=== PATIENT | female | born 1975 | race Caucasian/White ===

== ENCOUNTER → 2016-06-25 | Outpatient (CLI) | payer MEDICAID ==
[~2016-06-25] MED LIST: IMITREX50 MG PO; NORCO 325 MG-7.1 TAB PO; PRENATAL VITAMI1 TA5 PO; PROMETRIUM100 MG/CAP
== END ==
LOC: COL.RAD 06-24 08:30
DX: R19.09 Other intra-abdominal and pelvic swelling, mass and lump (principal); R10.84 Generalized abdominal pain
CPT/HCPCS: Q9967

== ENCOUNTER → 2016-07-01 | Outpatient (CLI) | payer MEDICAID | LOC: COL.RAD 10:30 | DX: R10.11 Right upper quadrant pain (principal); R11.2 Nausea with vomiting, unspecified ==

== ENCOUNTER → 2016-07-08 | Outpatient (CLI) | payer MEDICAID | LOC: COL.RAD 06:05 | DX: R10.11 Right upper quadrant pain (principal); R11.2 Nausea with vomiting, unspecified | CPT/HCPCS: A9537; J2805 ==

== ENCOUNTER 2016-07-29 17:11 | Emergency (ER) | payer MEDICAID ==
[~2016-07-29] VITALS: Ht 165.1 cm; Wt 77.3 kg
[~2016-07-29 17:11] MED LIST changes: -IMITREX50 MG PO; -NORCO 325 MG-7.1 TAB PO
[2016-07-29 17:14] VITALS: TEMP 97.7
[2016-07-29] MEDS ORDERED: IMITREX50 MG PO (17:17)
[2016-07-29] MEDS ORDERED: NORCO 325 MG-7.1 TAB PO (17:18)
[2016-07-29 18:03] LABS: BASO # 0.1 (0.0-0.2); BASO % 0.8 % (0.0-2.0); EOS # 0.8 (0.0-0.7); EOS % 10.4 % (0-4.0); GRAN % 49.9 % (42.2-75.2); HEMATOCRIT 43.9 % (37.0-47.0); HEMOGLOBIN 14.8 g/dl (12.5-16.0); LYMPH # 2.3 (1.2-3.4); LYMPH % 28.5 % (20.0-51.0); MEAN CELL VOLUME 88 fl (80.0-100.0); MEAN CORPUSCULAR HEMOGLOBIN 30 pg (27.0-31.0); MEAN CORPUSCULAR HGB CONC 34 g/dl (33.0-37.0); MEAN PLATELET VOLUME 9.6 fl (7.4-10.4); MONO # 0.6 (0.1-0.6); MONO % 7.6 % (1.7-9.3); PLATELET COUNT 306 K/mm3 (130-400); RED BLOOD COUNT 4.97 M/mm3 (4.10-5.30); REDCELL DISTRIBUTION WIDTH-CV 13.1 % (11.5-14.5); WHITE BLOOD COUNT 7.9 K/mm3 (4.8-10.8)
[2016-07-29 18:08] LABS: ADJUSTED CALCIUM 9.2 mg/dL (8.4-10.2); ALBUMIN 4.4 gm/dL (3.5-5.0); BILIRUBIN,TOTAL 0.9 mg/dL (0.0-1.0); CALCIUM 9.5 mg/dL (8.4-10.2); CREATININE, serum 0.78 mg/dL (0.52-1.25); POTASSIUM 3.6 mmol/L (3.4-5.0); TOTAL PROTEIN 8.6 gm/dL (6.4-8.2)
[2016-07-29 18:17] LABS: PH 5 (5-8); URINE APPEARANCE Hazy; URINE BACTERIA Rare /hpf; URINE BILIRUBIN Negative (NEGATIVE); URINE BLOOD Negative (NEGATIVE); URINE COLOR Yellow; URINE GLUCOSE Negative (NEGATIVE); URINE KETONE Negative (NEGATIVE); URINE UROBILINOGEN Negative (NEGATIVE); URINE WBC 0-2 /hpf
[2016-07-29 18:53] VITALS: BP 136/84; PULSE 96
== END 2016-07-29 19:08 | disposition home or self-care (01) ==
LOC: COL.ER 17:11
PROVIDERS: Emergency Medicine
DX: G89.18 Other acute postprocedural pain (principal); R10.11 Right upper quadrant pain; Z90.49 Acquired absence of other specified parts of digestive tract
CPT/HCPCS: J2765; J3010; J7030; Q9967

== ENCOUNTER 2016-10-22 22:16 | Emergency (ER) | payer MEDICAID ==
[~2016-10-22] VITALS: Ht 162.6 cm; Wt 83.2 kg
[~2016-10-22 22:16] MED LIST changes: +IMITREX50 MG PO; +NORCO 325 MG-7.1 TAB PO
[2016-10-22 22:19] VITALS: BP 159/96; PULSE 88; TEMP 97.6
== END 2016-10-22 22:58 | disposition home or self-care (01) ==
LOC: COL.ER 22:16
DX: G43.909 Migraine, unspecified, not intractable, without status migrainosus (principal)
CPT/HCPCS: J1200; J1885; J2550

== ENCOUNTER 2016-10-23 10:17 | Emergency (ER) | payer MEDICAID ==
[~2016-10-23] VITALS: Ht 162.6 cm; Wt 83.2 kg
[2016-10-23 10:22] VITALS: BP 121/88; TEMP 97.8
[2016-10-23 11:59] VITALS: PULSE 73
== END 2016-10-23 12:01 | disposition home or self-care (01) ==
LOC: COL.ER 10:17
DX: G43.909 Migraine, unspecified, not intractable, without status migrainosus (principal)
CPT/HCPCS: J1885; J2765

== ENCOUNTER → 2017-03-04 | Outpatient (CLI) | payer MEDICAID | LOC: COL.RAD 07:09 | DX: R42 Dizziness and giddiness (principal); R51 Headache | CPT/HCPCS: A9585 ==

== ENCOUNTER → 2017-06-30 | Outpatient (CLI) | payer MEDICAID | LOC: MC.RAD 10:52 | DX: Z12.31 Encounter for screening mammogram for malignant neoplasm of breast (principal); Z98.82 Breast implant status ==

== ENCOUNTER → 2017-07-02 | Outpatient (CLI) | payer MEDICAID | LOC: MC.RAD 09:44 | DX: N60.01 Solitary cyst of right breast (principal) ==

== ENCOUNTER 2017-08-04 08:46 | Emergency (ER) | payer MEDICAID ==
[~2017-08-04] VITALS: Ht 177.8 cm; Wt 81.8 kg
[2017-08-04 08:52] VITALS: BP 138/88; TEMP 98
[2017-08-04] MEDS ORDERED: IMITREX ST6 MG/0.51 IM (08:56)
[2017-08-04] MEDS ORDERED: TOPAMAX 25MG25 M1 PO (08:56)
[2017-08-04] MEDS ORDERED: PRILOSEC 20MG20 MG PO (08:57)
[2017-08-04] MEDS ORDERED: VESICARE 5MG5 MG PO (08:59)
[2017-08-04] MEDS ORDERED: NATURAL MAGNES200 MG PO (08:59)
[2017-08-04] MEDS ORDERED: ESTRACE2 MG PO (09:00)
[2017-08-04] MEDS ORDERED: VITAMIN D31000 I1 PO (09:00)
[2017-08-04] MEDS ORDERED: VITAMIN B225 MG PO (09:01)
[2017-08-04] MEDS ORDERED: PREDNISONE20 MG PO (09:53)
[2017-08-04 10:10] VITALS: PULSE 89
== END 2017-08-04 10:11 | disposition home or self-care (01) ==
LOC: COL.ER 08:46
DX: J98.01 Acute bronchospasm (principal); K21.9 Gastro-esophageal reflux disease without esophagitis; Z90.710 Acquired absence of both cervix and uterus

== ENCOUNTER 2017-10-09 23:11 | Emergency (ER) | payer MEDICAID ==
[~2017-10-09] VITALS: Ht 172.7 cm; Wt 81.8 kg
[~2017-10-09 23:11] MED LIST changes: +ESTRACE2 MG PO; +IMITREX ST6 MG/0.51 IM; +NATURAL MAGNES200 MG PO; +PREDNISONE20 MG PO; +PRILOSEC 20MG20 MG PO; +TOPAMAX 25MG25 M1 PO; +VESICARE 5MG5 MG PO; +VITAMIN B225 MG PO; +VITAMIN D31000 I1 PO
[2017-10-09 23:19] VITALS: BP 150/93; TEMP 97.4
[2017-10-10 01:18] VITALS: PULSE 66
== END 2017-10-10 01:17 | disposition home or self-care (01) ==
LOC: COL.ER 23:11
DX: G43.909 Migraine, unspecified, not intractable, without status migrainosus (principal); Z90.710 Acquired absence of both cervix and uterus
CPT/HCPCS: J0595; J1200; J1885; J2405; J2765

== ENCOUNTER → 2018-11-04 | Outpatient (CLI) | payer MEDICAID | LOC: MC.RAD 09:17 | DX: Z12.31 Encounter for screening mammogram for malignant neoplasm of breast (principal); Z98.82 Breast implant status ==

== ENCOUNTER → 2019-06-09 | Outpatient (CLI) | payer MEDICAID | LOC: MC.RAD 10:23 | DX: N60.02 Solitary cyst of left breast (principal) | CPT/HCPCS: G0279 ==

== ENCOUNTER → 2019-11-06 | Outpatient (CLI) | payer MEDICAID | LOC: MC.RAD 15:17 | DX: Z12.31 Encounter for screening mammogram for malignant neoplasm of breast (principal); Z98.82 Breast implant status ==

== ENCOUNTER 2020-04-14 22:41 | Emergency (ER) | payer MEDICAID ==
[~2020-04-14] VITALS: Ht 165.1 cm; Wt 77.3 kg
[2020-04-14 23:01] VITALS: TEMP 97.7
[2020-04-14] MEDS ORDERED: PREDNISONE20 MG PO (23:50)
[2020-04-15 00:01] VITALS: BP 123/94; PULSE 61
== END 2020-04-15 00:07 | disposition home or self-care (01) ==
LOC: COL.ER 22:41
DX: J06.9 Acute upper respiratory infection, unspecified (principal); Z20.828 Contact with and (suspected) exposure to other viral communicable diseases
CPT/HCPCS: J7512

== ENCOUNTER 2020-08-29 19:40 | Emergency (ER) | payer MEDICAID ==
[~2020-08-29] VITALS: Ht 167.6 cm; Wt 87.3 kg
[2020-08-29 19:53] VITALS: TEMP 97.5
[2020-08-29 20:59] LABS: BASO % 0.1 % (0.0-2.0); GRAN # 7.4 (1.4-6.5); HEMATOCRIT 41.5 % (37.0-47.0); LYMPH # 0.9 (1.2-3.4); LYMPH % 9.9 % (20.0-51.0); MEAN CELL VOLUME 89 fl (80.0-100.0); MEAN CORPUSCULAR HEMOGLOBIN 30 pg (27.0-31.0); MEAN CORPUSCULAR HGB CONC 34 g/dl (33.0-37.0); MEAN PLATELET VOLUME 9.4 fl (7.4-10.4); MONO # 0.3 (0.1-0.6); MONO % 3.8 % (1.7-9.3); PLATELET COUNT 275 K/mm3 (130-400); RED BLOOD COUNT 4.69 M/mm3 (4.10-5.30); REDCELL DISTRIBUTION WIDTH-CV 13.4 % (11.5-14.5)
[2020-08-29 21:00] LABS: ALBUMIN 4.1 gm/dL (3.5-5.0); BILIRUBIN,TOTAL 0.1 mg/dL (0.0-1.0); C-REACTIVE PROTEIN 1.8 mg/dL (0.0-0.9); CREATININE, serum 0.77 (0.52-1.25); POTASSIUM 3.8 mmol/L (3.4-5.0); TOTAL PROTEIN 8.2 gm/dL (6.4-8.2)
[2020-08-29 21:37] VITALS: BP 134/74; PULSE 98
== END 2020-08-29 21:37 | disposition home or self-care (01) ==
LOC: COL.ER 19:40
PROVIDERS: Emergency Medicine
DX: J06.9 Acute upper respiratory infection, unspecified (principal); G43.909 Migraine, unspecified, not intractable, without status migrainosus; K21.9 Gastro-esophageal reflux disease without esophagitis; I10 Essential (primary) hypertension; Z20.822 Contact with and (suspected) exposure to COVID-19; Z79.52 Long term (current) use of systemic steroids
CPT/HCPCS: J7030

== ENCOUNTER → 2020-10-09 | Outpatient (CLI) | payer MEDICAID | LOC: COL.RAD 07:01 | DX: G43.709 Chronic migraine without aura, not intractable, without status migrainosus (principal) ==

== ENCOUNTER → 2021-07-29 | Outpatient (CLI) | payer MEDICAID | LOC: COL.RAD 09:58 | DX: M41.85 Other forms of scoliosis, thoracolumbar region (principal); M51.35 Other intervertebral disc degeneration, thoracolumbar region; Z90.49 Acquired absence of other specified parts of digestive tract ==

== ENCOUNTER → 2022-07-30 | Outpatient (CLI) | payer MEDICAID | LOC: MC.RAD 10:00 | DX: N63.20 Unspecified lump in the left breast, unspecified quadrant (principal) ==

== ENCOUNTER → 2022-08-18 | Outpatient (CLI) | payer MEDICAID | LOC: MC.RAD 09:58 | DX: N63.21 Unspecified lump in the left breast, upper outer quadrant (principal) ==